=== PATIENT | female | born 2000 | race Caucasian/White ===

== ENCOUNTER 2023-09-30 17:00 | Emergency (ER) | payer SELFPAY ==
[~2023-09-30] VITALS: Ht 162.6 cm; Wt 51.4 kg
[2023-09-30] MEDS ORDERED: SODIUM CHLORIDE 0.9% 500 ML IV ONE (17:15)
[2023-09-30] MEDS ORDERED: ondansetron HCL 4 MG/2 ML VIAL IV ONE ×2 (17:15→18:45)
[2023-09-30 17:29] LABS: BASOPHILS 0.3 % (0-2); HEMATOCRIT 41.5 % (35.0-50.0); LYMPHOCYTES 3.3 % (24-44); MCH 31.1 (27-36); MCHC 33.7 g/dl (30-36); MCV 92.2 fl (81-99); MONOCYTES 6.4 % (0-12); PLATELET COUNT 343 K/uL (140-440); RDW 12.6 (10.5-15.0)
[2023-09-30 17:44] LABS: ALBUMIN 4.6 g/dL (3.4-5.0); ALBUMIN/GLOBULIN RATIO 1.07 (1.1-2.4); ANION GAP 16.4 (7-21); BILIRUBIN, TOTAL 0.5 ng/dL (0.2-1.0); BUN/CREATININE RATIO 14.1 (6.0-28.6); CALCIUM 9.5 mg/dL (8.5-10.1); CREATININE, SERUM 0.78 mg/dL (0.55-1.02); MAGNESIUM 1.9 mg/dL (1.8-2.4); POTASSIUM 3.4 mmol/L (3.5-5.1); PROTEIN, TOTAL 8.9 g/dL (6.4-8.2)
[2023-09-30] MEDS ORDERED: SODIUM CHLORIDE 0.9% 1,000 ML IV PRN (18:45)
[2023-09-30] MEDS ORDERED: diphenhydrAMINE HCL 50 MG/ML VIAL IV ONE (18:45)
[2023-09-30] MEDS ORDERED: SODIUM CHLORIDE 0.9% 500 ML IV PRN (19:15)
[2023-09-30] MEDS ORDERED: ONDANSETRON 4 MG HOME.PACK SL ONE (19:45)
[2023-09-30 20:36] LABS: BILIRUBIN, URINE NEGATIVE (negative); BLOOD/HGB, URINE NEGATIVE (Negative); KETONE, URINE SMALL (Negative); LEUK ESTERASE, URINE NEGATIVE (negative); NITRITE, URINE NEGATIVE (negative)
[2023-09-30] MEDS ORDERED: ONDANSETRON ODT8 MG PO (20:45)
[2023-09-30] MEDS ORDERED: LOMOTIL TABLET1 EACH PO (20:45)
[2023-09-30] MEDS ORDERED: droPERidol 5 MG/2 ML VIAL IV ONE (21:00)
[2023-09-30 21:33] VITALS: BP 134/73
== END 2023-09-30 21:37 | disposition home or self-care (01) ==
LOC: ED 17:00
PROVIDERS: Emergency Medicine
DX: R11.2 Nausea with vomiting, unspecified (principal); R19.7 Diarrhea, unspecified; D72.829 Elevated white blood cell count, unspecified
CPT/HCPCS: 36415; 74018; 80053; 81003; 83735; 84703; 85025; 85060; 96361; 96374; 96375; 96376; 99283-25; A9270; J1200; J1790; J2405; J7030; J7040